=== PATIENT | male | born 1935 | race Two or more races ===

== ENCOUNTER → 2016-08-16 | Outpatient (CLI) | payer MEDICARE | END | disposition home or self-care (01) | LOC: Rad HDHVI 09:01 | PROVIDERS: ATTEND Internal Medicine Cardiovascular Disease | DX: I10 Essential (primary) hypertension (principal); I25.10 Atherosclerotic heart disease of native coronary artery without angina pectoris; Z86.79 Personal history of other diseases of the circulatory system; Z95.5 Presence of coronary angioplasty implant and graft | CPT/HCPCS: 93306 ==

== ENCOUNTER → 2016-09-07 | Outpatient (CLI) | payer MEDICARE ==
[~2016-09-07] VITALS: Ht 180.3 cm; Wt 80.3 kg
== END | disposition home or self-care (01) ==
LOC: Rad HDHVI 08:36
PROVIDERS: ATTEND Internal Medicine Cardiovascular Disease
DX: I25.10 Atherosclerotic heart disease of native coronary artery without angina pectoris (principal); E78.00 Pure hypercholesterolemia, unspecified; N21.9 Calculus of lower urinary tract, unspecified; R42 Dizziness and giddiness; Z86.79 Personal history of other diseases of the circulatory system
CPT/HCPCS: 78452; 93017; 96374; A9500

== ENCOUNTER → 2016-09-24 | Outpatient (CLI) | payer MEDICARE ==
[2016-09-24 12:40] VITALS: BP 147/90
[2016-09-24 13:30] VITALS: BP 147/90
== END | disposition home or self-care (01) ==
LOC: CHF HDHVI 13:01
PROVIDERS: ATTEND Internal Medicine Cardiovascular Disease
DX: I50.9 Heart failure, unspecified (principal)
CPT/HCPCS: 93701; 94620; G0463

== ENCOUNTER → 2016-10-17 | Outpatient (CLI) | payer MEDICARE ==
[~2016-10-17] VITALS: Ht 180.3 cm; Wt 79.0 kg
[2016-10-17 08:00] VITALS: BP 139/82
[2016-10-17 08:30] VITALS: BP 143/83
[2016-10-17 12:50] LABS: Basophils # (auto) 0 uL; Basophils % (auto) 0.7 % (0.0-2.0); CONDITION Y; Eosinophils # (auto) 0.2 uL; Eosinophils % (auto) 4.5 % (0.0-7.0); Hematocrit 39.1 % (41.0-53.0); Hemoglobin 13.1 g/dL (13.5-17.5); Lymphocytes # (auto) 1.5 uL; Lymphocytes % (auto) 32.8 % (10.0-50.0); Mean Corpuscular Hemoglobin 28.8 pg (28.0-32.0); Mean Corpuscular Hgb Conc. 33.5 g/dL (32.0-36.0); Mean Corpuscular Volume 86.2 fL (80.0-100.0); Mean Platelet Volume 9.6 fL (7.4-10.4); Monocytes # (auto) 0.4 uL; Monocytes % (auto) 9.3 % (0.0-12.0); Neutrophils # (auto) 2.3 uL; Neutrophils % (auto) 52.7 % (37.0-80.0); Platelet Count (auto) 188 10^3/uL (140-450); Red Cell Distribution Width 13.8 % (11.6-16.0); White Blood Cell 4.4 10^3/uL (4.4-10.8)
[2016-10-17 13:04] LABS: INR 0.97 (0.9-1.15); Partial Thromboplastin Time 27.1 sec (22.64-33.71); Prothrombin Time 10.6 sec (9.37-12.3)
[2016-10-17 13:14] LABS: Calcium 8.5 mg/dL (8.5-10.1); Potassium 4.1 mmol/L (3.5-5.1)
== END | disposition home or self-care (01) ==
LOC: CHF HDHVI 07:42
PROVIDERS: ATTEND Internal Medicine Cardiovascular Disease
DX: Z01.810 Encounter for preprocedural cardiovascular examination (principal); Z01.812 Encounter for preprocedural laboratory examination; I11.0 Hypertensive heart disease with heart failure; I50.9 Heart failure, unspecified; I25.10 Atherosclerotic heart disease of native coronary artery without angina pectoris; D64.9 Anemia, unspecified; R79.1 Abnormal coagulation profile
CPT/HCPCS: 36415; 80048; 85025; 85610; 85730; 93005; G0463

== ENCOUNTER 2016-10-18 09:45 | Inpatient (IN) | payer MEDICARE ==
[~2016-10-18] VITALS: Ht 180.3 cm; Wt 80.6 kg
[2016-10-18] MEDS ORDERED: LIDOCAINE 2%HCL (LOCAL ANESTH.) INJ 20ML MDV ONE ×3 (10:15→11:34)
[2016-10-18] MEDS ORDERED: IOHEXOL 350 MG/ML 100ML IJ ONE (10:15)
[2016-10-18] MEDS ORDERED: ceFAZolin 1GM/50ML D5W 50 ML IV ONE ×2 (10:45→11:03)
[2016-10-18] MEDS ORDERED: VANCOMYCIN HCL 1000 MG VL IR ONE (10:45)
[2016-10-18] MEDS ORDERED: VANCOMYCIN HCL 1000 MG VL ONE (11:03)
[2016-10-18] MEDS ORDERED: VANCOMYCIN 1GM/250ML D5W 250 ML IV ONE (11:03)
[2016-10-18] MEDS ORDERED: MIDAZOLAM HCL 1MG/1ML-2 ML VIAL ONE (11:19)
[2016-10-18] MEDS ORDERED: fentaNYL CITRATE 100 MCG/2 ML VL ONE (11:19)
[2016-10-18] MEDS: VANCOMYCIN 1GM/250ML D5W 250 ML IV SCH ×2 (11:55→21:51)
[2016-10-18] MEDS ORDERED: NITROGLYCERIN 0.4MG/DOSE SPRAY 4.9GM ONE (12:05)
[2016-10-18] MEDS ORDERED: SODIUM CHLORIDE 0.9% 1,000 ML IV SCH (13:04)
[2016-10-18] MEDS ORDERED: HYDROcodone-ACET 10/325MG TAB PO PRN (13:15)
[2016-10-18] MEDS ORDERED: ACETAMINOPHEN 325 MG TAB PO PRN (13:15)
[2016-10-18] MEDS ORDERED: LORazepam 0.5 MG TAB PO PRN (13:15)
[2016-10-18] MEDS ORDERED: MORPHINE SULF INJ 2 MG/ML SYRINGE 1ML IV PRN (13:15)
[2016-10-18] MEDS ORDERED: HYDROcodone-ACET 5/325MG TAB PO PRN (13:15)
[2016-10-18] MEDS ORDERED: NITROGLYCERIN 0.4 MG SL TAB SL PRN (13:15)
[2016-10-18 20:00] VITALS: BP 133/79
[2016-10-18 22:00] VITALS: BP 135/79
[2016-10-18] MEDS ORDERED: ATORVASTATIN 20 MG TAB PO SCH (22:00)
[2016-10-19 05:00] VITALS: BP 130/77
[2016-10-19] MEDS ORDERED: LEVOTHYROXINE SODIUM 50 MCG TAB PO SCH (07:00)
[2016-10-19 08:00] VITALS: BP 147/86
[2016-10-19] MEDS ORDERED: ASPirin-EC 81 mg tab PO SCH (10:00)
[2016-10-19] MEDS ORDERED: FINASTERIDE 5 MG TAB PO SCH (10:00)
[2016-10-19 11:46] VITALS: BP 159/93
[2016-10-19 13:00] VITALS: BP_SYST 147; BP_SYST 159; BP_DIAS 86; BP_DIAS 93
== END 2016-10-19 13:30 | disposition home or self-care (01) | DRG 224 ==
LOC: CATH 09:45 → TELE-E-ADS 09:46 → TELE-CENTR 18:49
PROVIDERS: ADMIT Internal Medicine Cardiovascular Disease; ATTEND Internal Medicine Cardiovascular Disease
PROC: 0JH609Z Insertion of Cardiac Resynchronization Defibrillator Pulse Generator into Chest Subcutaneous Tissue and Fascia, Open Approach (ICD-10-PCS; principal; 2016-10-18)
PROC: 02HL3KZ Insertion of Defibrillator Lead into Left Ventricle, Percutaneous Approach (ICD-10-PCS; 2016-10-18)
PROC: 02HK3KZ Insertion of Defibrillator Lead into Right Ventricle, Percutaneous Approach (ICD-10-PCS; 2016-10-18)
PROC: 02H63KZ Insertion of Defibrillator Lead into Right Atrium, Percutaneous Approach (ICD-10-PCS; 2016-10-18)
PROC: B2141ZZ Fluoroscopy of Right Heart using Low Osmolar Contrast (ICD-10-PCS; 2016-10-18)
DX: I25.5 Ischemic cardiomyopathy (principal); I50.23 Acute on chronic systolic (congestive) heart failure
CPT/HCPCS: 36415; 71010; 80048; 85025; 85610; 85730; 93005; 99152; G0463; J0690; J2250

== ENCOUNTER → 2016-10-26 | Outpatient (CLI) | payer MEDICARE ==
[~2016-10-26] MED LIST: BACITRACIN TOP OINT 1 UD PKG TOP ONE; ceFAZolin 1GM/50ML D5W 50 ML IV ONE
[2016-10-26 18:31] VITALS: BP 159/82
== END | disposition home or self-care (01) ==
LOC: CHF HDHVI 16:50
PROVIDERS: ATTEND Internal Medicine Cardiovascular Disease
DX: I50.9 Heart failure, unspecified (principal); Z95.810 Presence of automatic (implantable) cardiac defibrillator
CPT/HCPCS: 93005; 96365; G0463; J0690

== ENCOUNTER → 2016-10-29 | Outpatient (CLI) | payer MEDICARE ==
[2016-10-29 08:45] VITALS: BP 132/70
[2016-10-29 12:05] VITALS: BP 120/67
== END | disposition home or self-care (01) ==
LOC: CHF HDHVI 09:08
PROVIDERS: ATTEND Internal Medicine Cardiovascular Disease
DX: I50.9 Heart failure, unspecified (principal); I25.10 Atherosclerotic heart disease of native coronary artery without angina pectoris
CPT/HCPCS: G0463

== ENCOUNTER → 2016-11-05 | Outpatient (CLI) | payer MEDICARE ==
[~2016-11-05] MED LIST changes: -BACITRACIN TOP OINT 1 UD PKG TOP ONE; +CYANOCOBALAMIN (B-12) 1000 MCG/1 ML VIAL IM ONE; +CYANOCOBALAMIN (B-12) 1000 MCG/1 ML VIAL ONE; -ceFAZolin 1GM/50ML D5W 50 ML IV ONE
[2016-11-05 12:50] LABS: Basophils # (auto) 0 uL; Basophils % (auto) 0.7 % (0.0-2.0); CONDITION Y; Eosinophils # (auto) 0.1 uL; Eosinophils % (auto) 2.4 % (0.0-7.0); Hematocrit 37.7 % (41.0-53.0); Hemoglobin 12.5 g/dL (13.5-17.5); Lymphocytes # (auto) 1.5 uL; Lymphocytes % (auto) 29.2 % (10.0-50.0); Mean Corpuscular Hemoglobin 28.7 pg (28.0-32.0); Mean Corpuscular Hgb Conc. 33.2 g/dL (32.0-36.0); Mean Corpuscular Volume 86.4 fL (80.0-100.0); Monocytes # (auto) 0.4 uL; Monocytes % (auto) 8.4 % (0.0-12.0); Neutrophils # (auto) 3.1 uL; Neutrophils % (auto) 59.3 % (37.0-80.0); Platelet Count (auto) 198 10^3/uL (140-450); Red Cell Distribution Width 13.9 % (11.6-16.0); White Blood Cell 5.2 10^3/uL (4.4-10.8)
[2016-11-05 13:13] LABS: BUN/Creatinine Ratio 12.4; Calcium 8.8 mg/dL (8.5-10.1); Magnesium 2.5 mg/dL (1.6-2.6); Potassium 4.2 mmol/L (3.5-5.1)
[2016-11-05 14:26] LABS: B-Type Natriuretic Peptide 88.89 pg/mL (0-100)
[2016-11-05 14:29] LABS: Temperature: 24.1 C (20.0-25.0)
== END | disposition home or self-care (01) ==
LOC: CHF HDHVI 10:45
PROVIDERS: ATTEND Internal Medicine Cardiovascular Disease
DX: D51.9 Vitamin B12 deficiency anemia, unspecified (principal); I11.0 Hypertensive heart disease with heart failure; I50.23 Acute on chronic systolic (congestive) heart failure; E55.9 Vitamin D deficiency, unspecified; D64.9 Anemia, unspecified
CPT/HCPCS: 36415; 80048; 82306; 82607; 83735; 83880; 85025; 96372; G0463; J3420